=== PATIENT | male | born 1970 | race Caucasian/White ===

== ENCOUNTER 2023-01-18 05:11 | Day surgery (SDC) | payer BC, OTHER ==
[2023-01-13 11:30] VITALS: BMI 26.4
[2023-01-18] MEDS ORDERED: LIDOCAINE HCL 1%, 10 MG/ML (10ML VIAL) MDV ONE (14:38)
[2023-01-18] MEDS ORDERED: PROPOFOL 40 ML ONE (14:44)
[2023-01-18] MEDS ORDERED: ceFAZolin SODIUM 1 GM VIAL IVPB ONE (14:55)
[2023-01-18] MEDS ORDERED: LIDOCAINE HCL 1%, 10 MG/ML (20ML VIAL) NR ONE ×2 (15:02)
[2023-01-18] MEDS ORDERED: BACITRACIN ZINC 15 GM TUBE TOPICAL OINTMENT ONE (15:35)
[2023-01-18] MEDS ORDERED: ONDANSETRON 4 MG/2 ML VIAL ONE (15:36)
[2023-01-18] MEDS ORDERED: DEXAMETHASONE SOD PHOSPHATE 4 MG/1 ML VIAL ONE (15:36)
[2023-01-18] MEDS ORDERED: KETOROLAC TROMETHAMINE 30 MG/1 ML VIAL ONE (15:36)
[2023-01-18] MEDS ORDERED: BACITRACIN ZINC 15 GM TUBE TOPICAL OINTMENT TP ONE (15:40)
[2023-01-18] MEDS ORDERED: ONDANSETRON 4 MG/2 ML VIAL IVPUSH PRN (15:52)
[2023-01-18] MEDS ORDERED: oxyCODONE HCL 5 MG TABLET PO PRN (15:52)
[2023-01-18] MEDS ORDERED: oxyCODONE HCL 5 MG TABLET ONE (17:06)
[2023-01-18] MEDS ORDERED: oxyCODONE HCL 5 MG TABLET PO ONE (17:08)
[2023-01-18 17:12] VITALS: RESP 16
[2023-01-18 18:27] VITALS: BP 111/83; PULSE 93; TEMP 98.1
== END 2023-01-18 18:25 | disposition home or self-care (01) ==
LOC: JASU-SURG 05:11
PROVIDERS: ATTEND Surgery
PROC: 0VB60ZZ Excision of Right Tunica Vaginalis, Open Approach (ICD-10-PCS; principal; 2023-01-18 14:45)
DX: N43.3 Hydrocele, unspecified (principal)
CPT/HCPCS: 88302-TC; 94760

== ENCOUNTER 2023-01-24 10:53 | Inpatient (IN) | payer BC, OTHER ==
[2023-01-24] MEDS ORDERED: morphine CARPU-JECT 2 MG/1 ML DISP.SYRIN IVPUSH ONE (12:38)
[2023-01-24 13:00] LABS: BASO % 0.5 % (0-2.0); EOS % 1.3 % (0-4.5); HEMATOCRIT 37.3 % (35.4-49); HEMOGLOBIN 12.7 GM/dL (11.7-16.9); LYMPH % 14.3 % (8-40); MCH 30.8 pg (25.7-33.7); MEAN CELL VOLUME 90.6 fl (80-96); MEAN PLT VOLUME 6.9 fl (7.5-11.1); NEUT % 74.9 % (42.8-82.8); PLATELET COUNT 379 10^3/uL (134-434); RBC 4.11 M/mm3 (4.00-5.60); RDW 13.8 % (11.9-15.9); WHITE BLOOD COUNT 9.8 K/mm3 (4.0-10.0)
[2023-01-24 13:07] LABS: INR 1.1 (0.83-1.09); PROTHROMBIN TIME (PATIENT) 12.7 SEC (9.7-13.0)
[2023-01-24 13:10] LABS: ACTIVATED PTT 34.4 SECONDS (25.2-36.5)
[2023-01-24 13:19] LABS: CALCIUM 8.8 mg/dL (8.5-10.1)
[2023-01-24 13:20] LABS: ALBUMIN 3.5 g/dl (3.4-5.0); BLOOD UREA NITROGEN 18.6 mg/dL (7-18)
[2023-01-24 13:23] LABS: CREATININE 0.9 mg/dL (0.55-1.3)
[2023-01-24 13:25] LABS: BILIRUBIN,TOTAL 0.8 mg/dL (0.2-1); TOT PROT 7.1 g/dl (6.4-8.2)
[2023-01-24] MEDS ORDERED: ALPRAZolam 0.25 MG TABLET PO PRN (16:50)
[2023-01-24] MEDS ORDERED: ALBUTEROL SO4 HFA INHALER IH PRN (16:50)
[2023-01-24 16:51] LABS: EPI CELLS 1 /uL (0-25.1); HYALINE CASTS 0 /uL (0-3.1); URINE APPEARANCE CLEAR; URINE BACTERIA 5 /uL (0-1359); URINE BILIRUBIN NEGATIVE (NEGATIVE); URINE COLOR YELLOW; URINE GLUCOSE (UA) NEGATIVE (NEGATIVE); URINE KETONE NEGATIVE (NEGATIVE); URINE LEUK ESTERASE NEGATIVE (NEGATIVE); URINE NITRITE NEGATIVE (NEGATIVE); URINE PROTEIN NEGATIVE (NEGATIVE); URINE RBC 21 /uL (0-23.9); URINE UROBILINOGEN 0.2 mg/dL (0.2-1.0); URINE WBC 3 /uL (0-25.8)
[2023-01-24] MEDS ORDERED: LACTATED RINGERS SOLUTION 1,000 ML/1,000 ML INFUS.BAG IV SCH (17:00)
[2023-01-24] MEDS ORDERED: AMPICILLIN NA/SULBACTAM NA 1.5 GM VIAL ONE (17:49)
[2023-01-24] MEDS: AMPICILLIN NA/SULBACTAM NA 1.5 GM in SODIUM CHLORIDE 100 ML IVPB SCH (17:50)
[2023-01-25] MEDS: AMPICILLIN NA/SULBACTAM NA 1.5 GM in SODIUM CHLORIDE 100 ML IVPB SCH ×5 (00:03→18:43)
[2023-01-25] MEDS ORDERED: AMPICILLIN NA/SULBACTAM NA 1.5 GM VIAL ONE (00:06)
[2023-01-25] MEDS ORDERED: GABAPENTIN 300 MG CAPSULE ONE (00:06)
[2023-01-25] MEDS ORDERED: ALPRAZolam 0.25 MG TABLET ONE (00:06)
[2023-01-25] MEDS ORDERED: HEPARIN NA (PORCINE) 5,000 UNITS/ML 1ML VIAL ONE (00:07)
[2023-01-25 03:35] VITALS: BMI 26.6
[2023-01-25] MEDS ORDERED: CEFTRIAXONE 2 GM in DEXTROSE 5%-WATER 100 ML IVPB ONE (10:05)
[2023-01-25] MEDS: HEPARIN NA (PORCINE) 5,000 UNITS/ML 1ML VIAL SQ SCH ×3 (10:32→21:00)
[2023-01-25] MEDS: SUMAtriptan SUCCINATE 25 MG TABLET PO PRN (11:24)
[2023-01-25 12:12] LABS: BASO % 0.4 % (0-2.0); EOS % 2.4 % (0-4.5); HEMATOCRIT 34.6 % (35.4-49); HEMOGLOBIN 12.1 GM/dL (11.7-16.9); LYMPH % 18.8 % (8-40); MCH 31.3 pg (25.7-33.7); MCHC 34.9 g/dl (32.0-35.9); MEAN CELL VOLUME 89.9 fl (80-96); MEAN PLT VOLUME 6.7 fl (7.5-11.1); MONO % 11.5 % (3.8-10.2); NEUT % 66.9 % (42.8-82.8); PLATELET COUNT 359 10^3/uL (134-434); RBC 3.85 M/mm3 (4.00-5.60); RDW 13.6 % (11.9-15.9); WHITE BLOOD COUNT 9.2 K/mm3 (4.0-10.0)
[2023-01-25 12:26] LABS: INR 1.2 (0.83-1.09); PROTHROMBIN TIME (PATIENT) 13.9 SEC (9.7-13.0)
[2023-01-25 12:36] LABS: BLOOD UREA NITROGEN 13.8 mg/dL (7-18); CALCIUM 8.4 mg/dL (8.5-10.1)
[2023-01-25 12:41] LABS: TOT PROT 6.3 g/dl (6.4-8.2)
[2023-01-25] MEDS ORDERED: FENTANYL CITRATE/PF 50 MCG/ML VIAL ONE (15:19)
[2023-01-25] MEDS ORDERED: FENTANYL CITRATE/PF 50 MCG/ML VIAL IVPUSH ONE (15:30)
[2023-01-25] MEDS: DOCUSATE SODIUM 100 MG CAPSULE (FP) PO SCH ×2 (16:30→20:59)
[2023-01-25] MEDS: GABAPENTIN 300 MG CAPSULE PO SCH ×2 (20:59)
[2023-01-25] MEDS: POLYETHYLENE GLYCOL (HEALTHYLAX) 3350 17 GM PACKET PO SCH (21:00)
[2023-01-26] MEDS: AMPICILLIN NA/SULBACTAM NA 1.5 GM in SODIUM CHLORIDE 100 ML IVPB SCH ×5 (00:25→23:27)
[2023-01-26] MEDS ORDERED: ACETAMINOPHEN 325 MG TABLET (FP) PO PRN (01:38)
[2023-01-26] MEDS: DOCUSATE SODIUM 100 MG CAPSULE (FP) PO SCH ×3 (06:01→21:42)
[2023-01-26] MEDS: SUMAtriptan SUCCINATE 25 MG TABLET PO PRN ×2 (06:19→21:42)
[2023-01-26 08:41] LABS: BASO % 0.2 % (0-2.0); EOS % 2.1 % (0-4.5); HEMATOCRIT 33.9 % (35.4-49); HEMOGLOBIN 11.9 GM/dL (11.7-16.9); LYMPH % 15.3 % (8-40); MCH 31.6 pg (25.7-33.7); MCHC 35.2 g/dl (32.0-35.9); MEAN CELL VOLUME 89.7 fl (80-96); MEAN PLT VOLUME 6.9 fl (7.5-11.1); MONO % 11.4 % (3.8-10.2); PLATELET COUNT 372 10^3/uL (134-434); RBC 3.78 M/mm3 (4.00-5.60); RDW 13.4 % (11.9-15.9)
[2023-01-26 08:48] LABS: INR 1.19 (0.83-1.09); PROTHROMBIN TIME (PATIENT) 13.8 SEC (9.7-13.0)
[2023-01-26 09:03] LABS: CALCIUM 8.5 mg/dL (8.5-10.1)
[2023-01-26 09:04] LABS: BLOOD UREA NITROGEN 17.6 mg/dL (7-18); MAGNESIUM 2.1 mg/dL (1.8-2.4)
[2023-01-26 09:07] LABS: CREATININE 0.9 mg/dL (0.55-1.3)
[2023-01-26 09:08] LABS: TOT PROT 6.4 g/dl (6.4-8.2)
[2023-01-26] MEDS: HEPARIN NA (PORCINE) 5,000 UNITS/ML 1ML VIAL SQ SCH ×2 (10:34→21:42)
[2023-01-26] MEDS: POLYETHYLENE GLYCOL (HEALTHYLAX) 3350 17 GM PACKET PO SCH ×2 (10:35→21:42)
[2023-01-26] MEDS ORDERED: SUMAtriptan SUCCINATE 25 MG TABLET PO ONE (15:00)
[2023-01-26] MEDS ORDERED: oxyCODONE HCL 5 MG TABLET PO PRN ×2 (16:09→16:10)
[2023-01-26] MEDS: KETOROLAC TROMETHAMINE 15 MG/ML VIAL IVPUSH PRN (17:33)
[2023-01-26] MEDS: GABAPENTIN 300 MG CAPSULE PO SCH (21:42)
[2023-01-27] MEDS: KETOROLAC TROMETHAMINE 15 MG/ML VIAL IVPUSH PRN ×3 (00:11→13:13)
[2023-01-27 03:04] VITALS: RESP 18
[2023-01-27] MEDS: DOCUSATE SODIUM 100 MG CAPSULE (FP) PO SCH ×2 (05:58→14:36)
[2023-01-27] MEDS: AMPICILLIN NA/SULBACTAM NA 1.5 GM in SODIUM CHLORIDE 100 ML IVPB SCH ×2 (05:58→13:21)
[2023-01-27] MEDS: SUMAtriptan SUCCINATE 25 MG TABLET PO PRN (06:33)
[2023-01-27 08:59] LABS: BASO % 0.4 % (0-2.0); EOS % 3.3 % (0-4.5); HEMATOCRIT 34.2 % (35.4-49); LYMPH % 18.2 % (8-40); MCH 31.1 pg (25.7-33.7); MCHC 35.3 g/dl (32.0-35.9); MEAN CELL VOLUME 88.2 fl (80-96); MEAN PLT VOLUME 7.2 fl (7.5-11.1); MONO % 10.8 % (3.8-10.2); NEUT % 67.3 % (42.8-82.8); PLATELET COUNT 412 10^3/uL (134-434); RBC 3.87 M/mm3 (4.00-5.60); RDW 13.3 % (11.9-15.9); WHITE BLOOD COUNT 8.2 K/mm3 (4.0-10.0)
[2023-01-27] MEDS: POLYETHYLENE GLYCOL (HEALTHYLAX) 3350 17 GM PACKET PO SCH (09:20)
[2023-01-27] MEDS: HEPARIN NA (PORCINE) 5,000 UNITS/ML 1ML VIAL SQ SCH (09:21)
[2023-01-27 09:32] LABS: BLOOD UREA NITROGEN 19.4 mg/dL (7-18); TOT PROT 6.4 g/dl (6.4-8.2)
[2023-01-27 09:33] LABS: CREATININE 0.9 mg/dL (0.55-1.3)
[2023-01-27 09:34] LABS: MAGNESIUM 2.2 mg/dL (1.8-2.4)
[2023-01-27 09:35] LABS: BILIRUBIN,TOTAL 0.9 mg/dL (0.2-1); CALCIUM 8.5 mg/dL (8.5-10.1)
[2023-01-27 15:20] VITALS: BP 126/77; PULSE 88; TEMP 98.6
[2023-01-27] MEDS ORDERED: SUMAtriptan SUCCINATE 25 MG TABLET PO ONE (16:52)
[2023-01-27] MEDS ORDERED: SULFAMETHOXAZOLE/TRIMETHOPRIM 800MG/160MG D.S. TABLET PO SCH (22:00)
== END 2023-01-27 18:20 | disposition home or self-care (01) | DRG 700 ==
LOC: JER 10:53 → UNDOADMOB 16:18 → INTOOBSV 16:18 → JERBED 16:18 → J8W 01-25 02:59 → OBSVTOIN 01-26 16:06
PROVIDERS: ADMIT Internal Medicine; ATTEND Nurse Practitioner Family
DX: N99.89 Other postprocedural complications and disorders of genitourinary system (principal); N43.3 Hydrocele, unspecified; N50.82 Scrotal pain; J45.909 Unspecified asthma, uncomplicated; G89.29 Other chronic pain; Y84.8 Other medical procedures as the cause of abnormal reaction of the patient, or of later complication, without mention of misadventure at the time of the procedure; N50.89 Other specified disorders of the male genital organs
CPT/HCPCS: 0241U-QW; 10030; 36415; 70450-TC; 76870-TC; 80053; 81003; 83735; 85025; 85610; 85730; 86850; 86900; 86901; 87070; 87075; 87086; 87102; 87116; 87205; 87206; 87210; 88108; 88305-TC; 93005; 93010; 97116-GP; 97161-GP; 99285-25; G0378; J1644